=== PATIENT | female | born 1975 | race American Indian/Alaskan Native ===

== ENCOUNTER 2020-06-22 09:55 | Emergency (ER) | payer MEDICAID ==
[2020-06-22 10:04] VITALS: BP 150/90
--- NOTE | 2020-06-22 12:50 | XRay Report ---
Right ankle 3 views INDICATION: Right ankle pain following injury in twisting injury IMPRESSION: Circumferential swelling of the right ankle. Heterotopic ossification present just below the level of the medial malleolus probably from remote injury. No acute or displaced fracture is iden tified. Signer Name: Neo Barron MD Signed: 06/22/2020 12:45 PM Workstation Name: [id number]
[2020-06-22] MEDS ORDERED: CYCLOBENZAPRINE 10 MG TAB PO ONE (12:55)
[2020-06-22] MEDS ORDERED: IBUPROFEN 800 MG TAB PO ONE (12:55)
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
== END 2020-06-22 14:31 | disposition home or self-care (01) ==
LOC: ED 09:55
DX: S39.012A Strain of muscle, fascia and tendon of lower back, initial encounter (principal); S93.401A Sprain of unspecified ligament of right ankle, initial encounter; I10 Essential (primary) hypertension; J45.909 Unspecified asthma, uncomplicated; Z79.899 Other long term (current) drug therapy; Z88.8 Allergy status to other drugs, medicaments and biological substances; Z98.890 Other specified postprocedural states; Z87.891 Personal history of nicotine dependence; Z90.710 Acquired absence of both cervix and uterus; X58.XXXA Exposure to other specified factors, initial encounter; Y93.89 Activity, other specified; Y92.89 Other specified places as the place of occurrence of the external cause; Y99.8 Other external cause status